=== PATIENT | female | born 1980 | race Caucasian/White ===

== ENCOUNTER 2019-07-15 12:44 | Emergency (ER) | payer OTHER, SELFPAY ==
--- NOTE | 2019-07-15 13:09 | NUR ---
CALLED NO ANSWER.
--- NOTE | 2019-07-15 13:36 | NUR ---
NIL X 3 1309, 1315, 1334
== END 2019-07-15 13:41 | disposition left against medical advice (07) ==
LOC: ED 13:30
DX: Z53.21 Procedure and treatment not carried out due to patient leaving prior to being seen by health care provider (principal)